=== PATIENT | male | born 1995 | race Caucasian/White ===

== ENCOUNTER 2019-11-21 04:00 | Emergency (ER) | payer MEDICAID ==
[~2019-11-21] VITALS: Ht 175.3 cm; Wt 76.0 kg
[2019-11-21] MEDS ORDERED: IBUPROFEN 600MG TABLET PO ONE (05:00)
[2019-11-21 05:11] VITALS: BP 122/77
== END 2019-11-21 05:14 | disposition home or self-care (01) ==
LOC: ER 04:00
DX: R68.84 Jaw pain (principal)
CPT/HCPCS: 99283

== ENCOUNTER 2019-12-10 19:52 | Emergency (ER) | payer MEDICAID ==
[~2019-12-10] VITALS: Ht 172.7 cm; Wt 95.0 kg
[2019-12-10] MEDS ORDERED: ACETAMINOPHEN 325MG TABLET PO ONE (20:30)
[2019-12-10 23:19] VITALS: BP 128/78
== END 2019-12-10 23:21 | disposition home or self-care (01) ==
LOC: ER 19:52
DX: S16.1XXA Strain of muscle, fascia and tendon at neck level, initial encounter (principal); S06.891A Other specified intracranial injury with loss of consciousness of 30 minutes or less, initial encounter; X58.XXXA Exposure to other specified factors, initial encounter; Y93.89 Activity, other specified; Y92.89 Other specified places as the place of occurrence of the external cause; Y99.8 Other external cause status
CPT/HCPCS: 99285

== ENCOUNTER 2021-12-26 23:41 | Emergency (ER) | payer MEDICAID ==
[~2021-12-26] VITALS: Ht 175.3 cm; Wt 79.5 kg
[2021-12-27] MEDS ORDERED: ONDANSETRON HCL 4MG/2ML INJ IV STA (02:18)
[2021-12-27] MEDS ORDERED: MORPHINE SULFATE 4 MG/ML CPJ (NOT FOR IM USE) IV STA (02:18)
[2021-12-27 02:53] LABS: BASOPHILS % 0.5 % (0.0-2.0); EOSINOPHILS % 0.2 % (0.0-5.0); HEMATOCRIT. 43.1 % (42.0-52.0); HEMOGLOBIN. 14.9 g/dL (14.0-18.0); LYMPHOCYTES % 9.8 % (20.0-50.0); MEAN CORPUSCULAR VOLUME 86.6 fL (80.0-94.0); MEAN PLATELET VOLUME 9.2 fl (7.4-10.4); MONOCYTES % 3.3 % (2.0-8.0); NEUTROPHILS % 86.2 % (40.0-76.0); PLATELET 259 x1000/uL (130-400); RED BLOOD CELL COUNT 4.98 mill/uL (4.7-6.1); RED CELL DISTRIBUTION WIDTH 12.8 % (11.6-14.6)
[2021-12-27 03:01] LABS: CHLORIDE 103 mEq/L (98-107)
[2021-12-27] MEDS ORDERED: IBUP-2028 MT (04:12)
[2021-12-27 04:30] VITALS: BP 113/74
== END 2021-12-27 04:50 | disposition home or self-care (01) ==
LOC: ER 23:41
DX: R51.9 Headache, unspecified (principal); R00.1 Bradycardia, unspecified; R11.2 Nausea with vomiting, unspecified
CPT/HCPCS: 36415; 70450; 80053; 85025; 93005; 96374; 96375; 99285; J2270; J2405